=== PATIENT | male | born 1965 | race Caucasian/White ===

== ENCOUNTER 2016-12-15 09:58 | Emergency (ER) | payer OTHER ==
[~2016-12-15] VITALS: Ht 172.7 cm; Wt 79.3 kg
[2016-12-15 10:21] VITALS: BP 125/87; PULSE 86; RESP 15; O2SAT 98
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
[2016-12-15 11:11] LABS: EOSINOPHILS % (AUTO) 2.4 % (0-5); MONOCYTES % (AUTO) 8.4 % (4-12); Mean Corpuscular Hemoglobin 32.7 pg (27.0-35.0); Mean Corpuscular Volume 92.1 fL (81-100); NEUTROPHILS % (AUTO) 61.3 % (40-74); Platelet Count 259 bil/L (150-400)
[2016-12-15 11:38] LABS: TROPONIN T 0.01 ug/L (0.0-0.011)
--- NOTE | 2016-12-15 11:55 | DRSVH ---
PROCEDURE: CT BRAIN WITHOUT CONTRAST ([id number]) INDICATIONS: syncopal event TECHNIQUE: Noncontrast 4.5 mm thick angled axial sections acquired from the foramen magnum to the vertex, with c oronal reformats. COMPARISON: [facility], CT, BRAIN W/O CONTRAST, 01/24/2015, 16:11. FINDINGS: Image quality: Excellent. CSF spaces: Basal cisterns are patent. No extra-axial fluid collections. Ventricles are normal in size and shape. Brain: No midline shift. No intracranial masses or hemorrhage. Redd-white matter interface is norm al. Skull and face: Calvarium and visualized facial bones are intact, without suspicious lesions. Sinuses: Visualized sinuses and mastoids are clear. IMPRESSION: Stable head CT. No acute intracranial hemorrhage. Dictated by: Mansoor Sharpe M.D. on 12/15/2016 at 10:52 Approved by: Mansoor Sharpe M.D. on 12/15/2016 at 10:53
[2016-12-15 13:12] VITALS: BP 121/85; PULSE 75; RESP 16; O2SAT 99
== END 2016-12-15 13:10 | disposition home or self-care (01) ==
LOC: SED 09:58
DX: R55 Syncope and collapse (principal); R00.2 Palpitations; Z88.0 Allergy status to penicillin; Z88.5 Allergy status to narcotic agent

== ENCOUNTER 2017-01-11 10:42 | Day surgery (SDC) | payer OTHER ==
[~2017-01-11 10:42] MED LIST: 0.9% Sodium Chloride 1,000 ML IV SCH; Sodium Chloride LOK Flush 10 mL Syringe IV PRN; fentaNYL-PF 50 mCg/mL 2 mL Inj IVPUSH PRN
== END 2017-01-11 23:59 | disposition home or self-care (01) ==
LOC: END 10:42
PROVIDERS: ATTEND Internal Medicine Gastroenterology
DX: K62.5 Hemorrhage of anus and rectum (principal); R10.13 Epigastric pain; Z53.09 Procedure and treatment not carried out because of other contraindication; I21.3 ST elevation (STEMI) myocardial infarction of unspecified site